=== PATIENT | female | born 1945 | race Caucasian/White ===

== ENCOUNTER 2024-05-23 18:09 | Inpatient (IN) | payer MEDICARE ==
[~2024-05-23] VITALS: Ht 152.4 cm; Wt 68.6 kg
[2024-05-23] VITALS (7 sets, daily range): BP systolic 105–152; BP diastolic 50–81
[2024-05-23] MEDS ORDERED: HYDROcodone/Acetaminophen 1 COMBO TAB PO ONE (18:25)
[2024-05-23] MEDS ORDERED: SODIUM CHLORIDE 0.9% 1,000 ML IV ONE (19:40)
[2024-05-23] MEDS ORDERED: MORPHINE SULFATE 4 MG/ML VIAL IV ONE (19:40)
[2024-05-23] MEDS ORDERED: HYDROcodone 7.5 MG/Acetaminophen 325 MG/COMBO PO PRN (19:45)
[2024-05-23] MEDS ORDERED: MAGNESIUM HYDROXIDE 30 ML UDC PO PRN (19:45)
[2024-05-23] MEDS ORDERED: PROMETHAZINE HCL 25 MG/ML AMP IV ONE (19:45)
[2024-05-23] MEDS ORDERED: Zaleplon 5 MG/CAP PO PRN (19:45)
[2024-05-23] MEDS ORDERED: ACETAMINOPHEN 325 MG/TAB PO PRN (19:45)
[2024-05-24] VITALS (8 sets, daily range): BP systolic 106–133; BP diastolic 42–61
[2024-05-24 04:58] LABS: BASO% 0.2 % (0-3); EOS% 0.1 % (0-8); HEMOGLOBIN 12.5 g/dl (12.0-16.0); IMMATURE GRANULOCYTES 2.2 % (0.0-5.0); MEAN CELL VOLUME 104.2 fL CALC (80.0-100.0); MEAN CORPUSCULAR HGB 37.2 pG CALC (26.0-32.0); MEAN CORPUSCULAR HGB CONC 35.7 g/dL CAL (32.0-36.0); MONO% 4.1 % (2-13); NEUT# 9.65 thou/uL (2.00-7.15); NEUT% 84.4 % (42-76); RED BLOOD COUNT 3.36 mill/uL (4.20-5.60)
[2024-05-24 05:21] LABS: ALBUMIN 3.3 g/dL (3.2-5.0); BILIRUBIN, TOTAL 1.2 mg/dL (0.02-1.3); CREATININE 0.4 mg/dL (0.5-1.0); POTASSIUM 3.9 mmol/l (3.5-5.1)
[2024-05-24] MEDS ORDERED: CITALOPRAM20 MG PO (10:11)
[2024-05-24] MEDS ORDERED: COLESEVELAM HY625 MG PO (10:11)
[2024-05-24] MEDS ORDERED: LOPRESSOR25 M1 PO (10:11)
[2024-05-24] MEDS ORDERED: VOLTAREN1%GEL EX (10:12)
[2024-05-24] MEDS ORDERED: OMEGA 31000 MG PO (10:13)
[2024-05-24] MEDS ORDERED: CALCIUM +1 PO (10:14)
[2024-05-24] MEDS ORDERED: SODIUM CHLORIDE 0.9% 1,000 ML IV PRN (15:30)
[2024-05-24] MEDS ORDERED: AZITHROMYCIN 500 MG in SODIUM CHLORIDE 0.9% 250 ML IV SCH (18:00)
[2024-05-25 03:43] VITALS: BP 123/56
[2024-05-25 04:00] VITALS: BP 123/56
[2024-05-25 05:24] LABS: ALBUMIN 2.7 g/dL (3.2-5.0); BILIRUBIN, TOTAL 1.1 mg/dL (0.02-1.3); CREATININE 0.4 mg/dL (0.5-1.0); MAGNESIUM 1.4 mg/dL (1.6-2.3); POTASSIUM 3.5 mmol/l (3.5-5.1); TOTAL PROTEIN 4.9 g/dL (6.3-8.2)
[2024-05-25 05:35] VITALS: BP 145/55
[2024-05-25 05:49] LABS: BASO% 0.3 % (0-3); EOS% 0.7 % (0-8); HEMATOCRIT 30.1 % (37.0-47.0); IMMATURE GRANULOCYTES 1.6 % (0.0-5.0); LYMPH% 21.4 % (15-41); MEAN CELL VOLUME 105.6 fL CALC (80.0-100.0); MEAN CORPUSCULAR HGB 36.8 pG CALC (26.0-32.0); MEAN CORPUSCULAR HGB CONC 34.9 g/dL CAL (32.0-36.0); NEUT# 4.86 thou/uL (2.00-7.15); RED BLOOD COUNT 2.85 mill/uL (4.20-5.60); RED CELL DISTRI WIDTH 13.4 % (11.5-15.5)
[2024-05-25 05:58] LABS: HEMOGLOBIN 10.5 g/dl (12.0-16.0)
[2024-05-25] MEDS ORDERED: MAGNESIUM SULFATE HEPTAHYDRATE 50 ML IV SCH (10:00)
[2024-05-25 13:58] VITALS: BP 133/54
[2024-05-25 20:04] VITALS: BP 130/59
[2024-05-26] MEDS ORDERED: ONDANSETRON HCl 4 MG/2 ML SDV IV SCH (05:45)
[2024-05-26 06:17] LABS: BASO% 0.3 % (0-3); EOS% 1.5 % (0-8); HEMATOCRIT 32.7 % (37.0-47.0); HEMOGLOBIN 11.2 g/dl (12.0-16.0); IMMATURE GRANULOCYTES 2.6 % (0.0-5.0); LYMPH% 22.2 % (15-41); MEAN CELL VOLUME 105.8 fL CALC (80.0-100.0); MEAN CORPUSCULAR HGB 36.2 pG CALC (26.0-32.0); MEAN CORPUSCULAR HGB CONC 34.3 g/dL CAL (32.0-36.0); MONO% 5.3 % (2-13); NEUT# 4.99 thou/uL (2.00-7.15); NEUT% 68.1 % (42-76); RED BLOOD COUNT 3.09 mill/uL (4.20-5.60); RED CELL DISTRI WIDTH 13.4 % (11.5-15.5)
[2024-05-26 06:29] LABS: BILIRUBIN, TOTAL 0.9 mg/dL (0.02-1.3); CREATININE 0.4 mg/dL (0.5-1.0); POTASSIUM 3.5 mmol/l (3.5-5.1); TOTAL PROTEIN 5.5 g/dL (6.3-8.2)
[2024-05-26 06:30] VITALS: BP 130/66
[2024-05-26 07:16] VITALS: BP 132/52
[2024-05-26] MEDS ORDERED: FUROSEMIDE 40 MG/4 ML SDV IV SCH (11:30)
[2024-05-26 14:40] VITALS: BP 111/60
[2024-05-26 18:00] VITALS: BP 123/54
[2024-05-27 06:25] VITALS: BP 162/60
[2024-05-27 07:01] VITALS: BP 154/57
[2024-05-27] MEDS ORDERED: DOXYCYCLINE HY100 MG PO (11:50)
[2024-05-27] MEDS ORDERED: HYDROCO/APAP1 T10 PO (11:51)
[2024-05-27] MEDS ORDERED: LACTULOSE 20 GM/30 ML UDC PO PRN (12:10)
[2024-05-27] MEDS ORDERED: Polyethylene Glycol 3350 17 GM/PKT PO PRN (12:10)
[2024-05-27 14:13] VITALS: BP 133/65
[2024-05-27 18:41] VITALS: BP 159/62
[2024-05-27] MEDS ORDERED: DOXYCYCLINE HYCLATE 100 MG/CAP PO SCH (21:00)
[2024-05-28 04:18] VITALS: BP 129/58
[2024-05-28 07:20] VITALS: BP 155/62
[2024-05-28 16:56] VITALS: BP 157/72
[2024-05-28 19:08] VITALS: BP 146/54
[2024-05-28] MEDS ORDERED: ONDANSETRON HCl 4 MG/2 ML SDV IV PRN (23:10)
[2024-05-29 04:31] VITALS: BP 153/62
[2024-05-29 05:17] LABS: BASO% 0.7 % (0-3); HEMOGLOBIN 11.6 g/dl (12.0-16.0); LYMPH% 26.4 % (15-41); MEAN CELL VOLUME 106.3 fL CALC (80.0-100.0); MEAN CORPUSCULAR HGB 36.3 pG CALC (26.0-32.0); MEAN CORPUSCULAR HGB CONC 34.1 g/dL CAL (32.0-36.0); MONO% 5.5 % (2-13); NEUT# 4.14 thou/uL (2.00-7.15); NEUT% 58.6 % (42-76); RED BLOOD COUNT 3.2 mill/uL (4.20-5.60); RED CELL DISTRI WIDTH 13.6 % (11.5-15.5)
[2024-05-29 05:27] LABS: ALBUMIN 3.3 g/dL (3.2-5.0); CREATININE 0.5 mg/dL (0.5-1.0); MAGNESIUM 1.9 mg/dL (1.6-2.3)
[2024-05-29 05:32] LABS: BILIRUBIN, TOTAL 1.5 mg/dL (0.02-1.3)
[2024-05-29 05:49] LABS: IMMATURE GRANULOCYTES 5.8 % (0.0-5.0)
[2024-05-29] MEDS ORDERED: ONDANSETRON4 MG PO (09:35)
[2024-05-29 14:05] VITALS: BP 139/50
[2024-05-29 16:17] VITALS: BP 139/50
[2024-05-29 17:26] VITALS: BP 135/55
[2024-05-30 02:46] VITALS: BP 120/56
[2024-05-30 05:28] VITALS: BP 152/55
[2024-05-30 09:19] VITALS: BP 113/41
[2024-05-31] MEDS ORDERED: FISH OIL1000 M1 PO (05:32)
[2024-05-31] MEDS ORDERED: VITAMIN D-32000 UNI1 PO (05:32)
[2024-05-31] MEDS ORDERED: VIBRAMYCIN100 M2 PO (05:34)
[2024-05-31] MEDS ORDERED: TUMS E-X 750750 MG PO (05:34)
[2024-05-31] MEDS ORDERED: OMEPRAZOLE DR40 MG PO (05:35)
[2024-05-31] MEDS ORDERED: PEG 3350 PO (05:36)
[2024-05-31] MEDS ORDERED: HYDROCO/APAP1 T10 PO (05:46)
[2024-05-31] MEDS ORDERED: APAP325 MG PO (05:48)
== END 2024-05-30 12:16 | DRG 184 ==
LOC: ED 18:09 → ED-I 19:20 → ED 19:20 → ED-I 19:30 → ED 19:43 → MS2 19:44
PROVIDERS: Internal Medicine; Nurse Practitioner Family; ADMIT Internal Medicine; ATTEND Internal Medicine
PROC: 0T9B70Z Drainage of Bladder with Drainage Device, Via Natural or Artificial Opening (ICD-10-PCS; principal; 2024-05-24)
DX: S22.43XA Multiple fractures of ribs, bilateral, initial encounter for closed fracture (principal); S27.391A Other injuries of lung, unilateral, initial encounter; S00.03XA Contusion of scalp, initial encounter; E78.5 Hyperlipidemia, unspecified; W10.8XXA Fall (on) (from) other stairs and steps, initial encounter; Y92.028 Other place in mobile home as the place of occurrence of the external cause
CPT/HCPCS: J0456; J0696; J1940; J2405; J2550; J3475

== ENCOUNTER 2024-05-31 00:59 | Inpatient (IN) | payer MEDICARE ==
[~2024-05-31] VITALS: Ht 167.6 cm; Wt 65.3 kg
[2024-05-31] VITALS (21 sets, daily range): BP systolic 126–154; BP diastolic 47–73
[~2024-05-31 00:59] MED LIST: CALCIUM +1 PO; CITALOPRAM20 MG PO; COLESEVELAM HY625 MG PO; DOXYCYCLINE HY100 MG PO; HYDROCO/APAP1 T10 PO; LOPRESSOR25 M1 PO; OMEGA 31000 MG PO; ONDANSETRON4 MG PO; VOLTAREN1%GEL EX
--- NOTE | 2024-05-31 01:00 | NUR ---
PT TO RM 1 VIA EMS
[2024-05-31] MEDS ORDERED: ASPIRIN 81 MG/TAB PO ONE (01:15)
[2024-05-31] MEDS ORDERED: oxyCODONE 5MG/ ACETAMINOPHEN 325MG TAB PO ONE (01:20)
[2024-05-31 02:00] LABS: BASO% 0.6 % (0-3); HEMATOCRIT 33.2 % (37.0-47.0); HEMOGLOBIN 11.3 g/dl (12.0-16.0); LYMPH% 21.1 % (15-41); MEAN CELL VOLUME 103.8 fL CALC (80.0-100.0); MEAN CORPUSCULAR HGB 35.3 pG CALC (26.0-32.0); MONO% 6.2 % (2-13); NEUT# 5.66 thou/uL (2.00-7.15); NEUT% 63.8 % (42-76); RED BLOOD COUNT 3.2 mill/uL (4.20-5.60); RED CELL DISTRI WIDTH 13.7 % (11.5-15.5)
[2024-05-31 02:17] LABS: ACT PARTIAL THROMBO TIME 25.7 SECONDS (20.0-32.5)
[2024-05-31 02:19] LABS: PROTHROMBIN TIME 10.3 SECONDS (9.0-12.5)
[2024-05-31 02:20] LABS: IMMATURE GRANULOCYTES 6.3 % (0.0-5.0)
--- NOTE | 2024-05-31 02:23 | NUR ---
PT MEDICATED PER MD ORDERS. PT AWIATING FOR RESULTS AT THIS TIME.
[2024-05-31 02:30] LABS: D-DIMER 5.58 mg/L (0.19-0.60)
[2024-05-31 02:55] LABS: ALBUMIN 3.2 g/dL (3.2-5.0); BILIRUBIN, TOTAL 1.7 mg/dL (0.02-1.3); CREATININE 0.5 mg/dL (0.5-1.0); POTASSIUM 3.8 mmol/l (3.5-5.1); TOTAL PROTEIN 5.7 g/dL (6.3-8.2)
--- NOTE | 2024-05-31 03:20 | NUR ---
IV INITIATED ON PT FOR CTA.
--- NOTE | 2024-05-31 04:29 | NUR ---
PT PLACED ONN PUREWIK.
[2024-05-31] MEDS ORDERED: Heparin SODIUM (Porcine) 500 ML IV ONE (04:50)
[2024-05-31] MEDS ORDERED: Heparin SODIUM (Porcine) 5,000 UNITS/ML SDV IV ONE (05:00)
[2024-05-31] MEDS ORDERED: VITAMIN D-32000 UNI1 PO (05:32)
[2024-05-31] MEDS ORDERED: FISH OIL1000 M1 PO (05:32)
[2024-05-31] MEDS ORDERED: TUMS E-X 750750 MG PO (05:34)
[2024-05-31] MEDS ORDERED: VIBRAMYCIN100 M2 PO (05:34)
[2024-05-31] MEDS ORDERED: OMEPRAZOLE DR40 MG PO (05:35)
[2024-05-31] MEDS ORDERED: PEG 3350 PO (05:36)
[2024-05-31] MEDS ORDERED: SODIUM CHLORIDE 0.9% 1,000 ML IV PRN (05:45)
[2024-05-31] MEDS ORDERED: MAGNESIUM HYDROXIDE 30 ML UDC PO PRN (05:45)
[2024-05-31] MEDS ORDERED: ACETAMINOPHEN 325 MG/TAB PO PRN (05:45)
[2024-05-31] MEDS ORDERED: HYDROCO/APAP1 T10 PO (05:46)
[2024-05-31] MEDS ORDERED: APAP325 MG PO (05:48)
--- NOTE | 2024-05-31 05:49 | NUR ---
PT MEDICATED PER MD ORDERS. PT UPDATED ON POC, PT AWIATING FOR ADMISSION AT THIS TIME.
--- NOTE | 2024-05-31 06:08 | NUR ---
PT WILL BE HELD IN ED AT THIS TIME.
[2024-05-31] MEDS ORDERED: MORPHINE SULFATE 4 MG/ML VIAL IV ONE (06:45)
--- NOTE | 2024-05-31 07:10 | NUR ---
PT ASSESSMENT COMPLETE. PT RESTING, DENIES ANY NEEDS AT THIS TIME, MONITOR IN PLACE, IV MEDICATION INFUSING W/OUT REDNESS OR IRRITATION. PLAN OF CARE EXPLAINED TO PT.
--- NOTE | 2024-05-31 07:20 | NUR ---
MD AT BEDSIDE FOR EVALUATION. PLAN OF CARE AGAIN EXPLAINED TO PT W/OUT QUESTION
[2024-05-31] MEDS ORDERED: HYDROcodone 7.5 MG/Acetaminophen 325 MG/COMBO PO PRN (07:42)
--- NOTE | 2024-05-31 08:10 | NUR ---
PT REMAINS STABLE. PT RESTING WITH MEDICATION INFUSING. PT DENIES ANY ADDITIONAL COMPLAINTS OR NEEDS.PLAN OF CARE VERBALIZED
--- NOTE | 2024-05-31 08:38 | NUR ---
NURSE TO NURSE REPORT GIVEN TO ABILIO VAUGHN MED SURGE NURSE.
--- NOTE | 2024-05-31 08:55 | NUR ---
PT ARRIVED TO THE UNIT VIA STRETCHER, PT IS A&O X3, PT AMBULATED WITH MINIMAL ASSISTANCE TO THE BEDSIDE SCALE AND TO THE BED WITH A STRONG STEADY GAIT, PUPILS PERRL, RESP. EVEN AND UNLABORED, LUNG SOUNDS ARE CLEAR, ABD DISTENDED AND SOFT WITH ACTIVE BOWEL SOUNDS, 20G RAC IV WITH FLUIDS INFUSING AT PRESCRIBED RATE, 22G RFA IV WITH HEPARIN INFUSING PER PROTOCOL, NORMAL S1 S2 HEART SOUNDS, TELE MONITOR IN PLACE, STRONG RADIAL AND PEDAL PULSES, PT HAS BRUISING ON R SIDE, BACK OF RIGHT ARM, BACK AND L ARM FROM PREVIOUS FALL, PT ORIENTED TO THE ROOM AND CALL LANE SYSTEM, SAFETY MEASURES INTRODUCED, CALL LANE WITHIN REACH
[2024-05-31] MEDS ORDERED: METOPROLOL TARTRATE 25 MG/TAB PO SCH (09:00)
[2024-05-31] MEDS ORDERED: ESCITALOPRAM 10 MG/TAB PO SCH (09:00)
[2024-05-31] MEDS ORDERED: DOXYCYCLINE HYCLATE 100 MG/CAP PO SCH (09:00)
[2024-05-31] MEDS ORDERED: APIXABAN BASE 5 MG TAB PO SCH (12:00)
--- NOTE | 2024-05-31 12:00 | NUR ---
PT ASSISTED WITH BOOSTING UP IN THE BED FOR COMFORT, HEPARIN DC'D PER PROVIDER ORDER, PT EDUCATED ON STARTING ELIQUIS, PT VERBALIZED UNDERSTANDING, PT REMINDED TO CALL FOR ASSISTANCE, CALL LANE WITHIN REACH
--- NOTE | 2024-05-31 16:00 | NUR ---
PT LAYING IN BED RESTING WITH EYES CLOSED, RESP. EVEN AND UNLABORED, NO S/S OF DISTRESS, CALL LANE WITHIN REACH
--- NOTE | 2024-05-31 19:35 | NUR ---
SHIFT CHANGED REPORT REPORT RECEIVED FROM NURSE KIT. PT ASSISTED TO RECLINBER AND TOLERATED WELL. PT STATES SHE DOES HAVE SLIGHT PAIN TO HER BACK. RISE AND FALL TO CHEST. NO VISUAL SIGNS OF DISTRESS AT THE MOMENT. LUNGS ARE CLEAR ALL THROUGHOUT EXCEPT RIGHT LOWER LOBE IS DIMINISHED. DENIES ANY SOB. O2 IN PLACE VIA NC AT 2LPM. TELE MONITOR IN PLACE WORKING PROPERLY WITH LEAD INTACT. 20 G RAC-SL FLUSHED WITH 5 C AND 22 G RFA IPATNET AND INFUSING IVF NORMAL SALINE AT 100 MLS/HR. PT STATES THAT SHE DID HAVE A BOWEL MOVEMENT TODAY. BRUSISES NOTED TO HER BACK AND SEBASTIAN UPPER ARMS. PUREWICK IN PLACE DRAINING CLEAR YELLOW URINE. INSTRUCTED TO CALL FOR ASSISTANCE NEEDED. CALL LIGHT IS WIHITN REACH AND SAFETY PRECAUTIONS IN PLACE.
--- NOTE | 2024-05-31 19:55 | NUR ---
SHIFT CHANGE REPORT RECEIVED FROM NURSE NAVA. PT IS ALERT, AWAKE AND ORIENTED. NO VISUAL SIGNS OF DISTRESS. DECLINES ANY PAIN. LUNGS ARE CLEAR TO LOWER LOBES AND DIMINISHED TO UPPER QUADRANTS. TELE #[address] ORDERED[address] STRONG PEDAL PULSES TO TOUCH. PT STATES THAT SHE HAS AHD ANY BOWEL MOVEMNET SINCE A COUPLE WEEKS AGO. STRONG PEDAL PULSES TO TOUCH. INSTRCUTED TO CALL FOR ASSISTANCE NEEDED. CALL LIGHT IS WITHIN REACH AND SAFETY PRECAUTIONS IN PLACE.
[2024-05-31] MEDS ORDERED: ENOXAPARIN SODIUM 40 MG/0.4 ML SYR SC SCH (21:00)
[2024-06-01] VITALS (9 sets, daily range): BP systolic 123–148; BP diastolic 45–55
--- NOTE | 2024-06-01 | NUR ---
PATIENT RESTING IN SUPINE POSITION, AWAKE AT THIS MOMENT. DENIES ANY NEEDS. RESPS ARE EVEN AND UNLABORED ON O2 VIA NC AT 2LPM. TELE MONITOR IN PLACE READING SR-68. PUREWICK REMIANS IN PLACE. IFV NORMAL SALINE INFUSING VIA RFA ORDERED PER EMAR. TOP SIDE RAILS UP, BED IN LOWEST POSITON. CALL LIGHT IS WITHIN REACH AND SAFETY PRECAUTIONS IN PLACE.
--- NOTE | 2024-06-01 04:38 | NUR ---
PATIENT RESIING IN BED AT THIS TIME WITH EYES CLOSED. RESPS EVEN AND UNLABORED. O2 IN PLACE ORDERED VIA NC. TELE MONITOR IN PLACE SHOWING SR-66. IVF NORMAL SALINE INFUSING PER EMAR ORDERS. CALL [facility] IS IN REACH AND SAFETY PRECAUTIONS IN PLACE. PLAN OF CARE ONGOING
[2024-06-01 05:50] LABS: BASO% 0.6 % (0-3); EOS% 2.4 % (0-8); HEMATOCRIT 31.8 % (37.0-47.0); HEMOGLOBIN 11.2 g/dl (12.0-16.0); LYMPH% 21.3 % (15-41); MEAN CELL VOLUME 105.6 fL CALC (80.0-100.0); MEAN CORPUSCULAR HGB 37.2 pG CALC (26.0-32.0); MEAN CORPUSCULAR HGB CONC 35.2 g/dL CAL (32.0-36.0); MONO% 5.9 % (2-13); NEUT# 5.01 thou/uL (2.00-7.15); RED BLOOD COUNT 3.01 mill/uL (4.20-5.60); RED CELL DISTRI WIDTH 13.7 % (11.5-15.5)
[2024-06-01 06:03] LABS: IMMATURE GRANULOCYTES 6.8 % (0.0-5.0)
[2024-06-01 06:13] LABS: ALBUMIN 3.1 g/dL (3.2-5.0); BILIRUBIN, TOTAL 1.3 mg/dL (0.02-1.3); CREATININE 0.5 mg/dL (0.5-1.0); POTASSIUM 3.9 mmol/l (3.5-5.1); TOTAL PROTEIN 5.3 g/dL (6.3-8.2)
--- NOTE | 2024-06-01 07:24 | NUR ---
PT IS LAYING IN BED WITH LIGHTS ON AND EYES OPEN. AXO X3. PT TELLE IN PLACE. PUREWICK IN PLACE. O2 NC IN PLACE. NS RUNNING IN RIGHT WRIST IN PLACE. PTS LUNGS ARE CLEAR IN ALL BLACK. RESP EVEN AND UNLABORED. WEAL PEDAL AND STRONG RADIAL PULSES. BRUISE ON LEFT ARM FROM PRE ADMISSION FALL. NO NEEDS AT THIS TIME. BED IN THE LOWEST POSITION AND CALL LIGHT WITHIN REACH.
--- NOTE | 2024-06-01 12:00 | NUR ---
PT IS SITTING IN LOW FOWLERS POSITION IN BED TALKING TO VISITOR THAT IS IN BED SIDE CHAIR. PT DECLINES ANY NEEDS AT THIS TIME. O2 IN PLACE AT THIS TIME. RESP EVEN AND UNLABORED. SAFETY PRECAUTIONS IN PLACE. FLUIDS KVO IN R FA. BED IN THE LOWEST POSITION AND CALL LANE WITHIN REACH.
--- NOTE | 2024-06-01 17:19 | NUR ---
PT IS SITTING UP IN BEDSIDE CHAIR WITH VISITOR AT BEDSIDE. NO S/S OF DISTRESS AT THIS TIME. O2 IN PLACE, RESP IS EVEN AND UNLABORED. PT STATES HAVING RIB PAIN, WILL MEDICATE. PT DECLINES ANY OTHER NEEDS AT THIS TIME. CALL LANE WITHIN REACH.
--- NOTE | 2024-06-01 19:45 | NUR ---
PATIENT IN ROOM RESTING IN BED AWAKE. BEDSIDE ASSESSMENT COMPLETE. NO COMPLAINTS OF PAIN AT THIAS TIME. A&O X3. UNLABORED RESP NO VISUAL SIGNS OF DISTRESS. PURWICK IN PLACE. BOWL SOUNDS PRESENT IN ALL 4 QUADRENTS. BED AT LOWEST POSITION. CALL LIGHT WITH IN REACH.
[2024-06-02] VITALS: BP 145/55
--- NOTE | 2024-06-02 00:48 | NUR ---
PATIENT IN ROOM RESTING IN BED AWAKE. PATIENT CAN MAKE NEEDS KNOWN. NONE NEEDED AT THIS TIME. NO COMPLAINTS OF PAIN. BED AT LOWEST POSITON CALL LIGHT WITH IN REACH.
[2024-06-02 04:00] VITALS: BP 120/50
[2024-06-02 04:02] VITALS: BP 120/50
[2024-06-02 04:03] LABS: HEMATOCRIT 34.4 % (37.0-47.0); HEMOGLOBIN 11.6 g/dl (12.0-16.0); MEAN CELL VOLUME 107.2 fL CALC (80.0-100.0); MEAN CORPUSCULAR HGB 36.1 pG CALC (26.0-32.0); MEAN CORPUSCULAR HGB CONC 33.7 g/dL CAL (32.0-36.0); RED BLOOD COUNT 3.21 mill/uL (4.20-5.60); RED CELL DISTRI WIDTH 14.1 % (11.5-15.5)
[2024-06-02 04:23] LABS: ALBUMIN 3.3 g/dL (3.2-5.0); BILIRUBIN, TOTAL 1.5 mg/dL (0.02-1.3); CREATININE 0.3 mg/dL (0.5-1.0); MAGNESIUM 1.9 mg/dL (1.6-2.3); POTASSIUM 3.9 mmol/l (3.5-5.1); TOTAL PROTEIN 5.9 g/dL (6.3-8.2)
--- NOTE | 2024-06-02 04:45 | NUR ---
PATIENT IN ROOM RESTING IN BED AWAKE. UNLABORED RESP. NO VISUAL SIGNS OF DISTRESS. NO COMPLAINTS OF PAIN AT THIS TIME. BED AT LOWEST POSITION. CALL LIGHT WITH IN REACH.
[2024-06-02 05:53] VITALS: BP 125/50
--- NOTE | 2024-06-02 07:10 | NUR ---
PT LAYING IN THE BED RESTING WITH EYES CLOSED, AROUSES, EASILY TO VERBAL STIMULI, PT A&O X3, PUPILS PERRL, NORMAL S1 S2 HEART SOUNDS, RESP. EVEN AND UNLABORED, LUNG SOUNDS ARE CLEAR, ABD DISTENDED AND SOFT WITH ACTIVE BOWEL SOUNDS, 20G RAC IV SL, 22G RFA IV WITH FLUIDS INFUSING AT PRESCRIBED RATE, STRONG RADIAL PULSES, WEAK PEDAL PULSES, PT EDUCATED ABOUT THE RISK OF NOT GETTING OUT OF BED AND MOVING, PT VERBALIZED UNDERSTANDING, SAFETY MEASURES REINFORCED, CALL LANE WITHIN REACH
[2024-06-02 07:58] VITALS: BP 125/50
[2024-06-02 09:06] VITALS: BP 125/50
--- NOTE | 2024-06-02 12:00 | NUR ---
PT AMBULATED IN THE CUETO WITH PT, PT TOLERATED WELL, NO S/S OF DISTRESS, PT AMBULATED TO RECLINER, SAFETY MEASURES REINFORCED, CALL LANE WITHIN REACH
[2024-06-02] MEDS ORDERED: VIBRAMYCIN100 M2 PO (12:56)
[2024-06-02] MEDS ORDERED: ELIQUIS5 MG PO (12:57)
[2024-06-02] MEDS ORDERED: HYDROCO/APAP1 T10 PO (12:59)
[2024-06-02] MEDS ORDERED: XARELTO STARTER1 TAB PO (15:20)
--- NOTE | 2024-06-02 15:29 | NUR ---
6-MINUTE WALK TEST PT RESTING SPO2 ON RA 92% PT AMBULATED FOR 3.5 MIN BEFORE RETURNING TO BED DUE TO BACK PAIN DURING AMBULATION SPO2 ON RA 90% SPO2 AT REST ON RA AFTER AMBULATION 90%
--- NOTE | 2024-06-02 16:15 | NUR ---
Discharge instructions given. Patient verbalizes understanding of same. Discharged in stable condition via Wheelchair to Home with family. All belongings sent with pt.
--- NOTE | 2024-06-03 10:46 | NUR ---
Discharge follow up call completed 06/03/24. Patient states she is doing well since discharge. Patient has prescribed medication and is taking as directed. Patient is working to schedule a follow up appointment with her PCP. Patient has all the necessary equipment necessary and says things are going better than she anticipated. No needs or concerns verbalized by patient at this time.
== END 2024-06-02 16:05 | DRG 176 ==
LOC: ED 00:59 → ED-I 04:44 → ED 05:40 → MS2 05:41 → ED-I 05:41 → MS2 08:53
PROVIDERS: Emergency Medicine; Nurse Practitioner Family; ADMIT Internal Medicine; ATTEND Internal Medicine
DX: I26.99 Other pulmonary embolism without acute cor pulmonale (principal); R09.02 Hypoxemia; S22.41XD Multiple fractures of ribs, right side, subsequent encounter for fracture with routine healing; I10 Essential (primary) hypertension; E78.5 Hyperlipidemia, unspecified; K21.9 Gastro-esophageal reflux disease without esophagitis; F41.9 Anxiety disorder, unspecified; F32.A Depression, unspecified; W19.XXXD Unspecified fall, subsequent encounter
CPT/HCPCS: J1644; Q9967